=== PATIENT | female | born 1995 | race Two or more races ===

== ENCOUNTER 2019-05-30 13:03 | Emergency (ER) | payer MEDICAID ==
[~2019-05-30] VITALS: Ht 157.5 cm; Wt 61.0 kg
--- NOTE | 2019-05-30 13:54 | NUR ---
FROM LOBBY TO ROOM AT THIS TIME
--- NOTE | 2019-05-30 14:28 | NUR ---
PT UP TO RESTROOM AT THIS TIME FOR URINE SAMPLE
[2019-05-30] MEDS ORDERED: ONDANSETRON 2MG/ML, 2ML ONE (14:29)
[2019-05-30] MEDS ORDERED: ONDANSETRON 2MG/ML, 2ML IVPush ONE (14:30)
[2019-05-30] MEDS ORDERED: SODIUM CHLORIDE 0.9% 1,000ML IVBOLUS ONE (14:30)
[2019-05-30] MEDS ORDERED: SODIUM CHLORIDE FLUSH 10ML SYR IVF ONE (14:30)
[2019-05-30 14:32] LABS: MEAN CORPUSCULAR HEMOGLOBIN 26.5 pg (27.0-34.8); MEAN CORPUSCULAR HGB CONC 32.2 g/dL (32.4-35.8); MEAN CORPUSCULAR VOLUME 82.3 fL (80-100); MEAN PLATELET VOLUME 9.9 fL (7.4-10.4); PLATELET COUNT 369 x10^3/uL (130-400); RED BLOOD COUNT 4.84 x10^6/uL (3.82-5.3); RED CELL DISTRIBUTION WIDTH 19.9 % (9.6-15.2)
[2019-05-30 14:39] LABS: ALANINE AMINOTRANSFERASE 15 U/L (12-78); ALBUMIN 3.9 g/dL (3.4-5.0); ANION GAP 9 mmol/L (5-15); CALCIUM 8.7 mg/dL (8.5-10.1); CHLORIDE 109 mmol/L (98-107)
[2019-05-30] MEDS ORDERED: HYDROcodone/APAP 5/325 TABLET ONE (14:51)
[2019-05-30] MEDS ORDERED: HYDROcodone/APAP 5/325 TABLET PO STA (14:52)
--- NOTE | 2019-05-30 14:53 | NUR ---
URINE WALKED TO LAB. PT REQUESTING PAIN MEDICATION. UPDATED ADDITIONAL ORDER RECIEVED. PT MEDICATED PER MAR
[2019-05-30 14:54] LABS: BASOPHILS # (AUTO) 0.04 x10^3/uL (0-0.1); BASOPHILS % (AUTO) 0 % (0-1); EOSINOPHILS # (AUTO) 0.01 x10^3/uL (0-0.4); EOSINOPHILS % (AUTO) 0 % (1-7); LYMPHOCYTES # (AUTO) 2.48 x10^3/uL (1-3.4); LYMPHOCYTES % (AUTO) 22 % (22-44); MONOCYTES # (AUTO) 0.67 x10^3/uL (0.2-0.8); MONOCYTES % (AUTO) 6 % (2-9); NEUTROPHILS # (AUTO) 7.86 x10^3/uL (1.8-6.8); NEUTROPHILS % (AUTO) 71 % (42-75)
[2019-05-30 14:57] LABS: ALKALINE PHOSPHATASE 64 U/L (45-117); BILIRUBIN,TOTAL 0.6 mg/dL (0.2-1.0); FREE T4 (FREE THYROXINE) 1.34 ng/dL (0.76-1.46); TOTAL PROTEIN 8.1 g/dL (6.4-8.2)
[2019-05-30 15:02] LABS: MD NO
[2019-05-30 15:14] LABS: MICROSCOPIC AUTO
[2019-05-30 15:36] LABS: CULTURE INDICATED? NO
--- NOTE | 2019-05-30 15:49 | NUR ---
NEW ORDERS RECEIVED AT THIS TIME FOR US. AWAITING TESTING
[2019-05-30] MEDS ORDERED: ACETAMINOPHEN 325 MG TABLET ONE (15:50)
--- NOTE | 2019-05-30 15:53 | NUR ---
PT REQUESTING PAIN MEDICATION, UPDATED ADDITIONAL ORDERS RECEIVED
[2019-05-30] MEDS ORDERED: ACETAMINOPHEN 325 MG TABLET PO ONE (16:00)
--- NOTE | 2019-05-30 16:28 | NUR ---
PT TAKEN TO US
--- NOTE | 2019-05-30 16:34 | NUR ---
ALL RESULTS BACK AT THIS TIME, CHART UP FOR RECHECK
[2019-05-30] MEDS ORDERED: METOCLOPRAMIDE 5 MG/ML, 2ML ONE (16:47)
[2019-05-30] MEDS ORDERED: METOCLOPRAMIDE 5 MG/ML, 2ML IVPush ONE (17:00)
[2019-05-30] MEDS ORDERED: DIPHENHYDRAMINE 25 MG CAPSULE ONE (17:11)
--- NOTE | 2019-05-30 17:25 | NUR ---
PT SITTING ON CHAIR STATING I WANT TO GO HOME. MD AT BEDSIDE TO REASSESS PT AND DISCUSS POC
[2019-05-30] MEDS ORDERED: DIPHENHYDRAMINE 25 MG CAPSULE PO ONE (17:30)
[2019-05-30 17:35] VITALS: BP 133/61
== END 2019-05-30 17:37 | disposition home or self-care (01) ==
LOC: ED 15:18
DX: O21.9 Vomiting of pregnancy, unspecified (principal); R19.7 Diarrhea, unspecified; R30.0 Dysuria; R59.9 Enlarged lymph nodes, unspecified
CPT/HCPCS: 36415; 71045; 76801; 80053; 81001; 84439; 84443; 84702; 85025; 86901; 93005; 96361; 96374; 96375; 99284; J2405; J2765; J7030; Q0163; 84703